=== PATIENT | male | born 1995 | race Two or more races ===

== ENCOUNTER 2018-04-21 08:23 | Emergency (ER) | payer MEDICAID ==
--- NOTE | 2018-04-21 08:41 | EDPHY ---
H & P Stated Complaint: abd pain Time Seen by Provider: 04/21/18 08:32 - Personal History Current Tetanus/Diphtheria Vaccine: Yes Current Tetanus Diphtheria and Acellular Pertussis (TDAP): Yes - Medical/Surgical History Hx Asthma: No Hx Chronic Respiratory Disease: No Hx Diabetes: No Hx Cardiac Disease: No Hx Renal Disease: No Hx Cirrhosis: No Hx Alcoholism: No Hx HIV/AIDS: No Hx Splenectomy or Spleen Trauma: No Other PMH: denies - Social History Smoking Status: Never smoked Constitutional: Initial Vital Signs Temperature (C) 36.8 C 04/21/18 08:27 Heart Rate 70 04/21/18 08:27 Respiratory Rate 16 04/21/18 08:27 Blood Pressure 150/84 H 04/21/18 08:27 O2 Sat (%) 97 04/21/18 08:27 O2 Delivery Mode Room Air Allergies/Adverse Reactions: No Known Allergies Allergy (Unverified 04/21/18 08:27) Home Medications: Medication Instructions Recorded Ondansetron Odt [Zofran Odt 4 mg 4 mg PO Q4 PRN #10 tab 04/21/18 (RX)] Medical Decision Making ED Course/Re-evaluation: CHIEF COMPLAINT: Abdominal pain, nausea/vomiting HISTORY OF PRESENT ILLNESS: This patient is a healthy 22 year old male complaining of abdominal pain. His pain began last night. It is cramping discomfort primarily in his upper abdomen. This morning, he developed associated nausea and began vomiting. He is concerned as his brother had appendicitis with ruptured appendix last year. He denies personal history of abdominal surgery. No fever, diarrhea, chest pain, shortness of breath, headache, lightheadedness, or other associated symptoms. REVIEW OF SYSTEMS: A comprehensive 10 system review of systems is otherwise negative aside from elements mentioned in the history of present illness and medical decision making. PHYSICAL EXAM: HR, BP, O2 Sat, RR. Temp noted General Appearance: Alert, well hydrated, appropriate, and non-toxic appearing. Head: Atraumatic without scalp tenderness or obvious injury Eyes: Pupils equal, round, reactive to light and accommodation, EOMI, no trauma , no injection. Throat: There is no erythema or exudates, no lesions, normal tonsils, mucus membranes moist. Neck: Supple, 2+ carotid upstroke, nontender, no lymphadenopathy. Respiratory: No retractions, no distress, no wheezes, and no accessory muscle use. Lungs are clear to auscultation bilaterally. Cardiovascular: Regular rate and rhythm, no murmurs, rubs, or gallops. Bilateral carotid, radial, dorsalis pedis, and posterior tibial pulses intact. Good capillary refill all extremities. Gastrointestinal: Epigastric tenderness. Tenderness in RLQ. Abdomen is soft, non -distended, no masses, no rebound, no guarding, no peritoneal signs. Musculoskeletal: Normal active ROM of all extremities, atraumatic. Neurological: Alert, appropriate, and interactive. Nonfocal neuro exam. Skin: No rashes, good turgor, no nodules on palpation. Past medical history: Denies. Past surgical history: Denies. Family history: History of appendicitis with rupture in patient's brother. Social history: Student at [employer]. Single. Does not abuse tobacco, drugs, or alcohol. DIFFERENTIAL DIAGNOSIS: The differential diagnosis for the patient's abdominal pain included but was not limited to appendicitis, cholecystitis, hernias, testicular torsion, gastritis, and urinary tract infection. MEDICAL DECISION [id number] y/o male presents with abdominal pain, nausea, and vomiting. On exam, he has epigastric and RLQ tenderness. IV established. Plan for labs including I-stat chemistries. Plan to administer 2L IVF and 30mg IV Toradol, 4mg IV Zofran. Plan for CT abdomen/pelvis to rule out appendicitis or other acute processes. 09:[address] Owens, radiologist. CT negative for appendicitis. Patient's symptoms likely consistent with gastroenteritis. Plan to discharge patient home in good condition. Prescription for Zofran provided. Follow up and return precautions discussed. The patient is comfortable with this plan. - Data Points Laboratory Results: Laboratory Results 04/21/18 08:55 04/21/18 08:55 04/21/18 04/21/18 04/21/18 09:10 08:55 08:55 WBC 6.50 10^3/uL 10^3/uL (3.80-9.50) RBC 6.05 10^6/uL 10^6/uL (4.40-6.38) Hgb 17.6 g/dL H g/dL (13.7-17.5) POC Hgb 18.4 gm/dL H gm/dL (13.7-17.5) Hct 51.1 % H % (40.0-51.0) POC Hct 54 % H % (40-51) MCV 84.5 fL fL (81.5-99.8) MCH 29.1 pg pg (27.9-34.1) MCHC 34.4 g/dL g/dL (32.4-36.7) RDW 12.5 % % (11.5-15.2) Plt Count 224 10^3/uL 10^3/uL (150-400) MPV 10.4 fL fL (8.7-11.7) Neut % (Auto) 62.7 % % (39.3-74.2) Lymph % (Auto) 28.2 % % (15.0-45.0) Potter % (Auto) 5.7 % % (4.5-13.0) Eos % (Auto) 2.5 % % (0.6-7.6) Baso % (Auto) 0.6 % % (0.3-1.7) Nucleat RBC Rel Count 0.0 % % (0.0-0.2) Absolute Neuts (auto) 4.08 10^3/uL 10^3/uL (1.70-6.50) Absolute Lymphs (auto) 1.83 10^3/uL 10^3/uL (1.00-3.00) Absolute Monos (auto) 0.37 10^3/uL 10^3/uL (0.30-0.80) Absolute Eos (auto) 0.16 10^3/uL 10^3/uL (0.03-0.40) Absolute Basos (auto) 0.04 10^3/uL 10^3/uL (0.02-0.10) Absolute Nucleated RBC 0.00 10^3/uL 10^3/uL (0-0.01) Immature Gran % 0.3 % % (0.0-1.1) Immature Gran # 0.02 10^3/uL 10^3/uL (0.00-0.10) POC Sodium 143 mEq/L mEq/L (135-145) Sodium 142 mEq/L mEq/L (135-145) POC Potassium 3.9 mEq/L mEq/L (3.3-5.0) Potassium 4.3 mEq/L mEq/L (3.3-5.0) POC Chloride 102 mEq/L mEq/L (97-110) Chloride 103 mEq/L mEq/L (97-110) Carbon Dioxide 29 mEq/l mEq/l (22-31) Anion Gap 10 mEq/L mEq/L (8-16) POC BUN 13 mg/dL mg/dL (7-23) BUN 14 mg/dL mg/dL (7-23) Creatinine 0.9 mg/dL mg/dL (0.7-1.3) POC Creatinine 0.8 mg/dL mg/dL (0.7-1.3) Estimated GFR > 60 Glucose 99 mg/dL mg/dL (70-100) POC Glucose 97 mg/dL mg/dL (70-100) Calcium 10.1 mg/dL mg/dL (8.5-10.4) Total Bilirubin 0.7 mg/dL mg/dL (0.1-1.4) Conjugated Bilirubin 0.2 mg/dL mg/dL (0.0-0.5) Unconjugated Bilirubin 0.5 mg/dL mg/dL (0.0-1.1) AST 19 IU/L IU/L (17-59) ALT 28 IU/L IU/L (21-72) Alkaline Phosphatase 68 IU/L IU/L (38-126) Total Protein 8.1 g/dL g/dL (6.3-8.2) Albumin 5.2 g/dL H g/dL (3.5-5.0) Lipase 50 IU/L IU/L (23-300) Medications Given: Discontinued Medications Sodium Chloride (Ns) 1,000 mls @ 0 mls/hr IV EDNOW ONE; Wide Open PRN Reason: Protocol Stop: 04/21/18 08:58 Last Admin: 04/21/18 09:08 Dose: 1,000 mls Sodium Chloride (Ns) 1,000 mls @ 0 mls/hr IV EDNOW ONE; Wide Open PRN Reason: Protocol Stop: 04/21/18 08:58 Last Admin: 04/21/18 09:58 Dose: 1,000 mls Ketorolac Tromethamine (Toradol) 30 mg IVP EDNOW ONE Stop: 04/21/18 08:58 Last Admin: 04/21/18 09:08 Dose: 30 mg Ondansetron HCl (Zofran) 4 mg IVP EDNOW ONE Stop: 04/21/18 08:58 Last Admin: 04/21/18 09:08 Dose: 4 mg Point of Care Test Results: Chemistry 04/21/18 09:10 POC Sodium 143 mEq/L mEq/L (135-145) POC Potassium 3.9 mEq/L mEq/L (3.3-5.0) POC Chloride 102 mEq/L mEq/L (97-110) POC BUN 13 mg/dL mg/dL (7-23) POC Creatinine 0.8 mg/dL mg/dL (0.7-1.3) POC Glucose 97 mg/dL mg/dL (70-100) ISTAT H&H 04/21/18 09:10 POC Hgb 18.4 gm/dL H gm/dL (13.7-17.5) POC Hct 54 % H % (40-51) Departure - Departure Disposition: Home, Routine, Self-Care Clinical Impression: Acute gastroenteritis Condition: Good Instructions: Gastroenteritis (ED), Acute Abdominal Pain (ED) Additional Instructions: 1. Stay well hydrated. Introduce bland foods as tolerated. 2. Take Zofran as prescribed as needed for nausea. 3. Follow-up with your primary doctor within 2-3 days for symptoms unresolved. 4. Return to the Emergency Department for fever, increasing pain, uncontrollable vomiting or diarrhea, or other worsening of condition. Referrals: [facility] [Clinic] - As per Instructions Stand Alone Forms: School Excuse Prescriptions: Ondansetron Odt [Zofran Odt 4 mg (RX)] 4 mg PO Q4 PRN #10 tab PRN Reason: Nausea/Vomiting, Use 1st Report Scribed for: Kenroy Mantilla Report Scribed by: Ana Negron Date of Report: 04/21/18 Time of Report: 08:42
[2018-04-21] MEDS ORDERED: ONDANSETRON 4 MG/2 ML VIAL IVP ONE (08:57)
[2018-04-21] MEDS ORDERED: KETOROLAC 30 MG/1 ML SDV IVP ONE (08:57)
[2018-04-21] MEDS ORDERED: NS 1,000 ML IV ONE ×2 (08:57)
[2018-04-21 09:12] LABS: PLATELET COUNT 224 10^3/uL (150-400)
[2018-04-21] MEDS ORDERED: IOPAMIDOL (ISOVUE-300) 100 ML BTL ONE (09:27)
[2018-04-21 10:20] VITALS: BP 126/78
== END 2018-04-21 10:21 | disposition home or self-care (01) ==
DX: R10.10 Upper abdominal pain, unspecified (principal); R11.2 Nausea with vomiting, unspecified; E86.9 Volume depletion, unspecified
CPT/HCPCS: 82435-PO; 82565-PO; 82947-PO; 84132-PO; 84295-PO; 84520-PO; 85014-PO; 96374; J1885; J2405; Q9967